=== PATIENT | female | born 1945 | race Caucasian/White ===

== ENCOUNTER 2022-02-23 12:14 | Outpatient (CLI) | payer MEDICARE, OTHER | END 2022-02-23 12:15 | disposition home or self-care (01) | LOC: LABBT 12:14 | PROVIDERS: ATTEND Orthopaedic Surgery | DX: Z01.818 Encounter for other preprocedural examination (principal); M17.11 Unilateral primary osteoarthritis, right knee | CPT/HCPCS: 71046; 93005; 93010 ==

== ENCOUNTER 2022-02-23 13:00 | Inpatient (IN) | payer MEDICARE, OTHER ==
[2022-02-23 13:39] LABS: Bilirubin Neg (Negative); Blood, Urine Negative (Negative); Clarity Clear (Clear); Glucose, Urine (Dipstick) Normal (Negative); Ketone, Urine Negative (Negative); Leukocyte 25 (Negative); Nitrite Positive (Negative); Protein, Urine (Dipstick) 100 mg/dl (Neg-Trace); Specific Gravity, Urine 1.015 (1.002-1.036); Urobilinogen Normal mg/dL (Less than 2)
[2022-02-23 13:41] LABS: #Basophils 0.1 10x3/uL (0.0-0.2); #Eosinphils 0.4 10x3/uL (0.0-0.5); #Monocytes 0.8 10x3/uL (0.0-1.1); #Neutrophils 4.9 10x3/uL (1.5-8.4); %Basophils 0.7 % (0.0-2.0); %Eosinophils 4.8 % (0.0-6.0); %Lymphocytes 22.7 % (18.0-47.0); %Monocytes 10.3 % (0.0-10.0); %Neutrophils 61.1 % (40.0-75.0); Hemoglobin 10.8 g/dL (12.0-15.5); Mean Corpuscular HGB CONC 32.2 g/dL (32.0-36.0); Mean Corpuscular Hemoglobin 28.7 pg (27.0-33.0); Mean Corpuscular Volume 89.1 fl (81.6-98.3); Mean Platelet Volume 10.3 fl (7.4-10.4); Platelet Count 275 10x3/uL (150-450); RBC Distribution Width 14.6 % (11.5-14.5); Red Blood Cell (RBC) Count 3.76 10x6/uL (3.90-5.03); White Blood Cell (WBC) Count 8.1 10x3/uL (3.5-10.5)
[2022-02-23 14:03] LABS: INR-International Normal Ratio 0.9; Prothrombin Time 10.1 sec (9.5-12.1)
[2022-02-23 14:14] LABS: Anion Gap 15 mmol/L (10-20); BUN (Urea Nitrogen) 45 mg/dL (9.8-20.1); Calc. Creatinine Clearance 0 mL/min (70-130); Calcium 8.9 mg/dL (7.8-10.44); Carbon Dioxide 24 mmol/L (23-31); Chloride 107 mmol/L (98-107); Estimated GFR 30; Glucose 90 mg/dL (83-110); Sodium 141 mmol/L (136-145)
[2022-02-24 13:42] VITALS: BMI 26.4
[2022-02-28] MEDS ORDERED: Tranexamic Acid 1,000 MG/10 ML VIAL ONE (06:58)
[2022-02-28] MEDS ORDERED: Sodium Chloride 0.9% 0 ML ONE (06:59)
[2022-02-28] MEDS ORDERED: CEFAZOLIN 2 GM VIAL ONE (07:07)
[2022-02-28] MEDS ORDERED: Vancomycin 1 GM/200 ML BAG ONE (07:07)
[2022-02-28] MEDS ORDERED: Sodium Chloride 0.9% 100 ML ONE (07:08)
[2022-02-28] MEDS ORDERED: Fentanyl 100 MCG/2 ML VIAL ONE (08:24)
[2022-02-28] MEDS ORDERED: Lidocaine 1% PF 5 ML VIAL ONE (08:24)
[2022-02-28] MEDS ORDERED: Midazolam HCl 2 mg/2 ml Vial ONE (08:24)
[2022-02-28] MEDS ORDERED: traMADol HCl 50 MG TAB ONE (09:18)
== END 2022-02-28 09:33 | disposition home or self-care (01) | DRG 554 ==
LOC: SURG A 02-28 06:21
PROVIDERS: ADMIT Orthopaedic Surgery; ATTEND Orthopaedic Surgery
DX: M17.11 Unilateral primary osteoarthritis, right knee (principal); Z20.822 Contact with and (suspected) exposure to COVID-19; J44.9 Chronic obstructive pulmonary disease, unspecified; Z87.891 Personal history of nicotine dependence; Z79.899 Other long term (current) drug therapy; Z79.82 Long term (current) use of aspirin; Z79.890 Hormone replacement therapy
CPT/HCPCS: 80048; 81003; 85025; 85610; 86850; 86900; 86901; 87081; 87811; J0690; J2250; J3010; J3370; J3490